=== PATIENT | male | born 1980 | race Two or more races ===

== ENCOUNTER 2023-01-17 12:35 | Emergency (ER) | payer OTHER ==
[~2023-01-17] VITALS: Ht 170.2 cm; Wt 81.6 kg
== END 2023-01-17 17:08 | disposition home or self-care (01) ==
LOC: ER 12:35
DX: I10 Essential (primary) hypertension (principal); R51.9 Headache, unspecified

== ENCOUNTER 2023-04-08 09:06 | Emergency (ER) | payer OTHER ==
[~2023-04-08] VITALS: Ht 172.7 cm; Wt 81.6 kg
[2023-04-08] MEDS ORDERED: IRBESARTAN150 MG PO (09:27)
== END 2023-04-08 12:52 | disposition home or self-care (01) ==
LOC: ER 09:07
DX: F41.1 Generalized anxiety disorder (principal)